=== PATIENT | female | born 1980 | race Caucasian/White ===

== ENCOUNTER 2019-07-09 11:01 | Emergency (ER) | payer OTHER, SELFPAY ==
[2019-07-09 11:20] VITALS: BP 141/84; PULSE 100; RESP 19; TEMP 37.3; O2SAT 99; BMI 35.4
--- NOTE | 2019-07-09 12:14 | DI.US.S_ITS ---
PROCEDURE: US ABDOMEN LIMITED INDICATIONS: RUQ PAIN TECHNIQUE: Real-time focused scanning was performed of the abdomen, with image documentation. COMPARISON: [facility], CT, ABDOMEN/PELVIS WITH CONTRAST, 10/15/2014, 3:02. [facility], CT, KIDNEY/ URETER/BLADDER, 10/18/2007, 15:13. FINDINGS: The liver is measuring within the upper limits of normal for size at approximately 17 cm. No focal liver lesions are appreciated on the provided images. The gallbladder is somewhat contracted without significant gallbladder wall thickening. No pericholecystic fluid or cholelithiasis is identified. The common bile duct is normal in size at 3 mm in diameter. Imaged portions of the pancreas are unremarkable. The right kidney is unremarkable. There is no hydronephrosis or shadowing nephrolithiasis. The right kidney measures up to 11.9 cm in length. No free fluid is seen within the upper abdomen. The abdominal aorta and inferior vena cava were not adequately seen. IMPRESSION: 1. No cholelithiasis or evidence of acute cholecystitis. 2. No hydronephrosis of the right kidney. Dictated by: Porter Carrington M.D. on 07/09/2019 at 12:05 Approved by: Porter Carrington M.D. on 07/09/2019 at 12:06
--- NOTE | 2019-07-09 12:23 | ED.ABDPAIN ---
HPI - Abdominal Pain <CLINTON Funk - Last Filed: 07/09/19 14:57> General Chief Complaint: Abdominal Pain Stated Complaint: abdominal pain Time Seen by Provider: 07/09/19 12:04 Source: patient Mode of arrival: Family Vehicle Limitations: no limitations History of Present Illness HPI narrative: The patient is a 38 year female nonsmoker with history of 5 ectopic pregnancies who presents with a chief complaint of right upper quadrant pain. She presents from [facility] primary care for chief complaint of right upper quadrant pain. She states she has had chronic pain on and off for the past several years in her right upper quadrant, this came 4 days ago and is since worse. She denies any fevers, complains of nausea no vomiting. She states it gets worse with eating in a improves with rest. She states she is breast-feeding at this point time and is adamantly against any medications for pain or nausea right now. She states that she has had right upper quadrant ultrasounds in the past, with no acute findings. She states she still has her gallbladder, does have a complex OBGYN history including 3 C sections, IVF, right salpingectomy for ectopic in 2016 with a total of 5 ectopic pregnancies. She states her last menstrual cycle was 2 months ago, states she is currently at this point time. Related Data Home Medications Medication Instructions Recorded Confirmed calcium carbonate 600 mg calcium 600 mg PO DAILY 06/22/19 07/09/19 (1,500 mg) tablet cholecalciferol (vitamin D3) 50 2,000 unit PO DAILY 06/22/19 07/09/19 mcg (2,000 unit) capsule levothyroxine 50 mcg capsule 50 mcg PO DAILY 06/22/19 07/09/19 omega 7-dzd-tvt-fish oil 60 mg-90 1 cap PO DAILY 06/22/19 07/09/19 mg-500 mg capsule prenat.vits,murali,zkr-zugu-tjzoz 1 tab PO DAILY 06/22/19 07/09/19 Probiotics 1 cap PO DAILY 07/09/19 07/09/19 Allergies Allergy/AdvReac Type Severity Reaction Status Date / Time levofloxacin [From LEVAQUIN] Allergy Unknown Verified 07/09/19 11:26 promethazine [From PHENERGAN] Allergy Unknown Verified 07/09/19 11:26 Review of Systems <CLINTON Funk - Last Filed: 07/09/19 14:57> Review of Systems Narrative: GENERAL: Denies chills, fatigue, malaise, fever, sweats. HEENT: Denies sinus pain, ear pain, sore throat, difficulty swallowing, dizziness. RESPIRATORY: Denies dyspnea, cough, wheezing, hemoptysis, sputum. CARDIOVASCULAR: Denies chest pain, palpitations, orthopnea, edema, GASTROINTESTINAL: See HPI : Denies dysuria, frequency, incontinence, hematuria, urinary retention. MUSCULOSKELETAL: denies weakness, joint pain, or bony pain SKIN: Denies rash, skin lesions, or other NEUROLOGIC: Denies weakness, headache, numbness, change in speech, confusion, seizures, incoordination. PSYCHIATRIC: No concerning psychosocial issues. 12 point review of systems is negative except for those stated above Patient History <CLINTON Funk - Last Filed: 07/09/19 14:57> Medical History (Updated 07/09/19 @ 14:28 by PRAVEEN Leija) Anxiety (Chronic ~2007) Chicken pox (Resolved) Ectopic (Acute) Endometriosis (Chronic ~2013) Hypothyroidism (Chronic ~2015) In vitro fertilization (Acute) resulting from in vitro fertilization (Acute) Surgical History Anesthesia (Resolved) H/O unilateral salpingectomy (Acute ~2016) History of third molar tooth extraction (~2015) Status post delivery (~2000) Status post delivery (~2004) Status post delivery (Resolved ~2017) Status post tubal ligation (~2005) Social History Smoking Status: Never smoker second hand exposure: No alcohol intake: never substance use type: does not use Smoking Status: Never smoker alcohol intake frequency: 0-2 drinks per day Substance Use Type: does not use Exam <CLINTON Funk - Last Filed: 07/09/19 14:57> Narrative Exam Narrative: GENERAL: obese female sitting on stretcher in no acute distress HEAD: Atraumatic. Normocephalic. No temporal or scalp tenderness. EYES: Pupils equal round and reactive. Extraocular motions intact. No scleral icterus. No injection or drainage. ENT: Nose without bleeding, purulent drainage or septal hematoma. Throat without erythema, tonsillar hypertrophy or exudate. Uvula midline. Airway patent. NECK: Trachea midline. No JVD or lymphadenopathy. Supple, nontender, no meningeal signs. CARDIOVASCULAR: Regular rate and rhythm without murmurs, gallops, or rubs. RESPIRATORY: Clear to auscultation. Breath sounds equal bilaterally. No wheezes, rales, or rhonchi. No cough. No increased respiratory effort. No accessory muscle use. GASTROINTESTINAL: Abdomen soft, pain to right upper quadrant palpation with positive Arnett sign, active bowel sounds all 4 quadrants, nondistended. No hepato-splenomegaly, or palpable masses. EXTREMITIES: No clubbing, cyanosis, or edema. No joint tenderness, effusion, or edema noted. BACK: Nontender without deformity or crepitance. No flank tenderness. NEURO: AOx3. SKIN: No rash or erythema. Initial Vital Signs Initial Vital Signs: Vital Signs Temperature 99.1 F 07/09/19 11:20 Pulse Rate 100 H 07/09/19 11:20 Respiratory Rate 19 07/09/19 11:20 Blood Pressure 141/84 H 07/09/19 11:20 Pulse Oximetry 99 07/09/19 11:20 <Natividad Burnett MD - Last Filed: 07/09/19 18:55> Initial Vital Signs Initial Vital Signs: Vital Signs Temperature 99.1 F 07/09/19 11:20 Pulse Rate 100 H 07/09/19 11:20 Respiratory Rate 19 07/09/19 11:20 Blood Pressure 141/84 H 07/09/19 11:20 Pulse Oximetry 99 07/09/19 11:20 Course <CLINTON Funk - Last Filed: 07/09/19 14:57> Orders Ordered: ED Orders 07/09/19 12:14 US abdomen limited Stat 07/09/19 12:25 Amylase Stat Complete Blood Count AUTO DIFF Stat Comprehensive Metabolic Panel Stat Lipase Stat 07/09/19 12:47 Test Urine Stat Urinalysis and Microscopic Stat Vital Signs Vital signs: Vital Signs - 8 hr 07/09/19 11:20 07/09/19 13:39 Temperature 99.1 F Pulse Rate 100 H 87 Respiratory Rate 19 14 Blood Pressure 141/84 H Blood Pressure [Right Arm] 128/82 Pulse Oximetry 99 100 <Natividad Burnett MD - Last Filed: 07/09/19 18:55> Orders Ordered: ED Orders 07/09/19 12:14 US abdomen limited Stat 07/09/19 12:25 Amylase Stat Complete Blood Count AUTO DIFF Stat Comprehensive Metabolic Panel Stat Lipase Stat 07/09/19 12:47 Test Urine Stat Urinalysis and Microscopic Stat Vital Signs Vital signs: Vital Signs - 8 hr 07/09/19 11:20 07/09/19 13:39 Temperature 99.1 F Pulse Rate 100 H 87 Respiratory Rate 19 14 Blood Pressure 141/84 H Blood Pressure [Right Arm] 128/82 Pulse Oximetry 99 100 MDM - Abdominal Pain <DANA Funk - Last Filed: 07/09/19 14:57> Lab Data Result diagrams: 07/09/19 12:25 07/09/19 12:25 Labs: Lab Results 07/09/19 07/09/19 07/09/19 Range/Units 12:25 12:25 12:47 WBC 11.4 H (4.5-11.0) X10^3/uL RBC 4.97 (4.0-5.2) X10^6/uL Hgb 14.7 (12.0-16.0) g/dL Hct 43.0 (36-46) % MCV 86.5 (80-100) fL MCH 29.5 (26-34) PG MCHC 34.1 (30-36) % RDW 13.5 (11.6-14.8) % Plt Count 339 (150-400) X10^3/uL Neut % (Auto) 68.0 (50-75) % Lymph % (Auto) 20.8 L (25-40) % [place] % (Auto) 8.5 (3-14) % Eos % (Auto) 2.0 (2-4) % Baso % (Auto) 0.7 (0-2) % Neut # (Auto) 7800 H (9719-5916) /uL Lymph # (Auto) 2400 (4503-5915) /uL [place] # (Auto) 1000 H (0-900) /uL Eos # (Auto) 200 (0-450) /uL Baso # (Auto) 100 (0-100) /uL Sodium 140 (137-145) mmol/L Potassium 3.7 (3.4-5.1) mmol/L Chloride 102 (98-107) mmol/L Carbon Dioxide 29 (22-32) mmol/L BUN 10 (7-17) mg/dL Creatinine 0.50 L (0.52-1.04) mg/dL Estimated GFR > 60.0 (>60) mL/min BUN/Creatinine Ratio 20.0 (6-22) Glucose 121 H (70-100) mg/dL Calcium 9.4 (8.4-10.2) mg/dL Total Bilirubin 0.4 (0.2-1.3) mg/dL AST 26 (14-36) IU/L ALT 18 (<35) IU/L Alkaline Phosphatase 95 (38-126) U/L Total Protein 8.7 H (6.3-8.2) g/dL Albumin 4.8 (3.5-5.0) g/dL Globulin 3.9 (1.7-4.1) g/dL Albumin/Globulin Ratio 1.2 (1.0-2.8) Amylase 57 (30-110) U/L Lipase 177 (23-300) U/L Urine Color Yellow Urine Appearance Clear Urine pH 6.0 (4.5-8.0) Ur Specific [place] <=1.005 (1.000-1.035) Urine Protein Negative (Negative) Urine Glucose (UA) Negative (Negative) g/dL Urine Ketones Negative (NEGATIVE) Urine Occult Blood 1+ H (Negative) Urine Nitrate Negative (Negative) Urine Bilirubin Negative (NEGATIVE) Urine Urobilinogen 0.2 (0.2) E.U./dL Ur Leukocyte Esterase Negative (NEGATIVE) Urine RBC 1-5/hpf (0-5/HPF) Urine WBC None seen (0-5/HPF) Urine Bacteria None seen (None) Ur Culture Indicated? Cult not indicated Urine Test (Negative) 07/09/19 Range/Units 12:47 WBC (4.5-11.0) X10^3/uL RBC (4.0-5.2) X10^6/uL Hgb (12.0-16.0) g/dL Hct (36-46) % MCV (80-100) fL MCH (26-34) PG MCHC (30-36) % RDW (11.6-14.8) % Plt Count (150-400) X10^3/uL Neut % (Auto) (50-75) % Lymph % (Auto) (25-40) % [place] % (Auto) (3-14) % Eos % (Auto) (2-4) % Baso % (Auto) (0-2) % Neut # (Auto) (6753-9128) /uL Lymph # (Auto) (3925-6116) /uL [place] # (Auto) (0-900) /uL Eos # (Auto) (0-450) /uL Baso # (Auto) (0-100) /uL Sodium (137-145) mmol/L Potassium (3.4-5.1) mmol/L Chloride (98-107) mmol/L Carbon Dioxide (22-32) mmol/L BUN (7-17) mg/dL Creatinine (0.52-1.04) mg/dL Estimated GFR (>60) mL/min BUN/Creatinine Ratio (6-22) Glucose (70-100) mg/dL Calcium (8.4-10.2) mg/dL Total Bilirubin (0.2-1.3) mg/dL AST (14-36) IU/L ALT (<35) IU/L Alkaline Phosphatase (38-126) U/L Total Protein (6.3-8.2) g/dL Albumin (3.5-5.0) g/dL Globulin (1.7-4.1) g/dL Albumin/Globulin Ratio (1.0-2.8) Amylase (30-110) U/L Lipase (23-300) U/L Urine Color Urine Appearance Urine pH (4.5-8.0) Ur Specific [place] (1.000-1.035) Urine Protein (Negative) Urine Glucose (UA) (Negative) g/dL Urine Ketones (NEGATIVE) Urine Occult Blood (Negative) Urine Nitrate (Negative) Urine Bilirubin (NEGATIVE) Urine Urobilinogen (0.2) E.U./dL Ur Leukocyte Esterase (NEGATIVE) Urine RBC (0-5/HPF) Urine WBC (0-5/HPF) Urine Bacteria (None) Ur Culture Indicated? Urine Test Negative (Negative) Imaging Data US - abdomen: Radiologist's Impression: [address] [address] Ultrasound Report Signed Patient: Cathie Alarcon [facility]#: [id number] : 1980Acct:[id number] Age/Sex: 38 / FDate of Service: 07/09/19 Loc: ED Accession Number: [id number] Procedure: US abdomen limited Ordering Provider: Stacy Olmos PROCEDURE: US ABDOMEN LIMITED INDICATIONS: RUQ PAIN TECHNIQUE: Real-time focused scanning was performed of the abdomen, with image documentation. COMPARISON: [facility], CT, ABDOMEN/PELVIS WITH CONTRAST, 10/15/2014, 3:02. [facility], CT, KIDNEY/ URETER/BLADDER, 10/18/2007, 15:13. FINDINGS: The liver is measuring within the upper limits of normal for size at approximately 17 cm. No focal liver lesions are appreciated on the provided images. The gallbladder is somewhat contracted without significant gallbladder wall thickening. No pericholecystic fluid or cholelithiasis is identified. The common bile duct is normal in size at 3 mm in diameter. Imaged portions of the pancreas are unremarkable. The right kidney is unremarkable. There is no hydronephrosis or shadowing nephrolithiasis. The right kidney measures up to 11.9 cm in length. No free fluid is seen within the upper abdomen. The abdominal aorta and inferior vena cava were not adequately seen. IMPRESSION: 1. No cholelithiasis or evidence of acute cholecystitis. 2. No hydronephrosis of the right kidney. Dictated by: Porter Carrington M.D. on 07/09/2019 at 12:05 Approved by: Porter Carrington M.D. on 07/09/2019 at 12:06 [facility] Narrative Medical decision making narrative: The patient is a 38-year-old female who presents with a chief complaint of acute on chronic right upper quadrant pain. She has had pain like this on and off for the past several years, worse over the past 4 days. Lab work is grossly unremarkable, with no significant leukocytosis normal bilirubin and LFTs. Ultrasound illustrate no cholelithiasis, no evidence of cholecystitis. I discussed at length obtaining a CT scan given the significance of pain on exam, but the patient declines and states that she would prefer to follow up with primary care provider and her structural rigger. I discussed at length that she come back to the emergency department for any acute concerns such as abdominal pain with fever etcetera. Patient has no questions or concerns upon discharge states understanding return precautions as well as follow-up care. I did recommend a light diet, continuing her Pepcid, etcetera. Again patient repeatedly declined a CT scan in the emergency department, even after speaking with her . <Natividad Burnett MD - Last Filed: 07/09/19 18:55> Lab Data Labs: Lab Results 07/09/19 07/09/19 07/09/19 Range/Units 12:25 12:25 12:47 WBC 11.4 H (4.5-11.0) X10^3/uL RBC 4.97 (4.0-5.2) X10^6/uL Hgb 14.7 (12.0-16.0) g/dL Hct 43.0 (36-46) % MCV 86.5 (80-100) fL MCH 29.5 (26-34) PG MCHC 34.1 (30-36) % RDW 13.5 (11.6-14.8) % Plt Count 339 (150-400) X10^3/uL Neut % (Auto) 68.0 (50-75) % Lymph % (Auto) 20.8 L (25-40) % [place] % (Auto) 8.5 (3-14) % Eos % (Auto) 2.0 (2-4) % Baso % (Auto) 0.7 (0-2) % Neut # (Auto) 7800 H (9503-4697) /uL Lymph # (Auto) 2400 (0635-0939) /uL [place] # (Auto) 1000 H (0-900) /uL Eos # (Auto) 200 (0-450) /uL Baso # (Auto) 100 (0-100) /uL Sodium 140 (137-145) mmol/L Potassium 3.7 (3.4-5.1) mmol/L Chloride 102 (98-107) mmol/L Carbon Dioxide 29 (22-32) mmol/L BUN 10 (7-17) mg/dL Creatinine 0.50 L (0.52-1.04) mg/dL Estimated GFR > 60.0 (>60) mL/min BUN/Creatinine Ratio 20.0 (6-22) Glucose 121 H (70-100) mg/dL Calcium 9.4 (8.4-10.2) mg/dL Total Bilirubin 0.4 (0.2-1.3) mg/dL AST 26 (14-36) IU/L ALT 18 (<35) IU/L Alkaline Phosphatase 95 (38-126) U/L Total Protein 8.7 H (6.3-8.2) g/dL Albumin 4.8 (3.5-5.0) g/dL Globulin 3.9 (1.7-4.1) g/dL Albumin/Globulin Ratio 1.2 (1.0-2.8) Amylase 57 (30-110) U/L Lipase 177 (23-300) U/L Urine Color Yellow Urine Appearance Clear Urine pH 6.0 (4.5-8.0) Ur Specific [place] <=1.005 (1.000-1.035) Urine Protein Negative (Negative) Urine Glucose (UA) Negative (Negative) g/dL Urine Ketones Negative (NEGATIVE) Urine Occult Blood 1+ H (Negative) Urine Nitrate Negative (Negative) Urine Bilirubin Negative (NEGATIVE) Urine Urobilinogen 0.2 (0.2) E.U./dL Ur Leukocyte Esterase Negative (NEGATIVE) Urine RBC 1-5/hpf (0-5/HPF) Urine WBC None seen (0-5/HPF) Urine Bacteria None seen (None) Ur Culture Indicated? Cult not indicated Urine Test (Negative) 07/09/19 Range/Units 12:47 WBC (4.5-11.0) X10^3/uL RBC (4.0-5.2) X10^6/uL Hgb (12.0-16.0) g/dL Hct (36-46) % MCV (80-100) fL MCH (26-34) PG MCHC (30-36) % RDW (11.6-14.8) % Plt Count (150-400) X10^3/uL Neut % (Auto) (50-75) % Lymph % (Auto) (25-40) % [place] % (Auto) (3-14) % Eos % (Auto) (2-4) % Baso % (Auto) (0-2) % Neut # (Auto) (5949-5182) /uL Lymph # (Auto) (7391-0799) /uL [place] # (Auto) (0-900) /uL Eos # (Auto) (0-450) /uL Baso # (Auto) (0-100) /uL Sodium (137-145) mmol/L Potassium (3.4-5.1) mmol/L Chloride (98-107) mmol/L Carbon Dioxide (22-32) mmol/L BUN (7-17) mg/dL Creatinine (0.52-1.04) mg/dL Estimated GFR (>60) mL/min BUN/Creatinine Ratio (6-22) Glucose (70-100) mg/dL Calcium (8.4-10.2) mg/dL Total Bilirubin (0.2-1.3) mg/dL AST (14-36) IU/L ALT (<35) IU/L Alkaline Phosphatase (38-126) U/L Total Protein (6.3-8.2) g/dL Albumin (3.5-5.0) g/dL Globulin (1.7-4.1) g/dL Albumin/Globulin Ratio (1.0-2.8) Amylase (30-110) U/L Lipase (23-300) U/L Urine Color Urine Appearance Urine pH (4.5-8.0) Ur Specific [place] (1.000-1.035) Urine Protein (Negative) Urine Glucose (UA) (Negative) g/dL Urine Ketones (NEGATIVE) Urine Occult Blood (Negative) Urine Nitrate (Negative) Urine Bilirubin (NEGATIVE) Urine Urobilinogen (0.2) E.U./dL Ur Leukocyte Esterase (NEGATIVE) Urine RBC (0-5/HPF) Urine WBC (0-5/HPF) Urine Bacteria (None) Ur Culture Indicated? Urine Test Negative (Negative) Discharge Plan Departure Patient Disposition: Home Clinical Impression: Abdominal pain Qualifiers: Abdominal location: right upper quadrant Qualified Code(s): R10.11 - Right upper quadrant pain Discharge Date/Time: 07/09/19 14:47 Instructions: DI for Abdominal Pain-Adult, GERD Diet Activity Restrictions/Additional Instructions: Thank you for trusting us with your care today. Please come back to emergency department for any acute concerns such as abdominal pain with fever, inability keep down fluids etcetera Please follow-up with primary care provider. As discussed, you have declined further imaging in the emergency department today. Please follow-up with primary care provider in the next few days. In the meantime, I suggest a simple diet, avoiding deep fried, spicy, fatty, citrus, acidic foods. Please come back to emergency department for any acute concerns. Prescriptions: No Action levothyroxine 50 mcg capsule 50 mcg PO DAILY RF: 0 omega 8-vvv-axa-fish oil [Fish Oil] 60-90-500 mg capsule 1 cap PO DAILY RF: 0 prenat.vits,murali,zkn-vwde-vewur Tablet 1 tab PO DAILY RF: 0 cholecalciferol (vitamin D3) 50 mcg (2,000 unit) capsule 2,000 unit PO DAILY RF: 0 calcium carbonate 600 mg calcium (1,500 mg) tablet 600 mg PO DAILY RF: 0 Probiotics 1 cap PO DAILY RF: 0 Referrals: Robinson Hernandez ARNP [Primary Care Provider] -
[2019-07-09 12:32] LABS: Add Manual Diff / Slide Review NO; Basophils Absolute Auto 100 /uL (0-100); Basophils Percent Auto 0.7 % (0-2); Eosinophils Absolute Auto 200 /uL (0-450); Hemoglobin 14.7 g/dL (12.0-16.0); Lymphocytes Absolute Auto 2400 /uL (1100-4500); Lymphocytes Percent Auto 20.8 % (25-40); Mean Corpuscular HGB Conc 34.1 % (30-36); Mean Corpuscular Hemoglobin 29.5 PG (26-34); Mean Corpuscular Volume 86.5 fL (80-100); Monocytes Absolute Auto 1000 /uL (0-900); Monocytes Percent Auto 8.5 % (3-14); Neutrophils Absolute Auto 7800 /uL (1500-7000); Platelet Count 339 X10^3/uL (150-400); Red Blood Cell Count 4.97 X10^6/uL (4.0-5.2); Red Cell Distribution Width 13.5 % (11.6-14.8); White Blood Cell Count 11.4 X10^3/uL (4.5-11.0)
[2019-07-09 12:43] LABS: Alanine Aminotransferase 18 IU/L (<35); Albumin 4.8 g/dL (3.5-5.0); Albumin Globulin Ratio 1.2 (1.0-2.8); Alkaline Phosphatase 95 U/L (38-126); Amylase 57 U/L (30-110); Aspartate Aminotransferase 26 IU/L (14-36); Bilirubin Total 0.4 mg/dL (0.2-1.3); Blood Urea Nitrogen 10 mg/dL (7-17); Calcium 9.4 mg/dL (8.4-10.2); Carbon Dioxide 29 mmol/L (22-32); Chloride 102 mmol/L (98-107); Estimated Glomerular Filt Rate > 60.0 mL/min (>60); Globulin 3.9 g/dL (1.7-4.1); Glucose 121 mg/dL (70-100); HEMOLYSIS 21 (0-50); Lipase 177 U/L (23-300); Potassium 3.7 mmol/L (3.4-5.1); Sodium 140 mmol/L (137-145); Total Protein 8.7 g/dL (6.3-8.2)
[2019-07-09 12:52] LABS: Bacteria Urine None Seen; WBC Urine None Seen (0-5/HPF)
[2019-07-09 12:55] LABS: Appearance Urine UA CLEAR; Bilirubin Urine UA NEGATIVE (NEGATIVE); Color Urine UA YELLOW; Glucose Urine UA NEGATIVE (Negative); Ketones Urine UA NEGATIVE (NEGATIVE); Leukocyte Esterase Urine UA NEGATIVE (NEGATIVE); Nitrite Urine UA NEGATIVE (Negative); Occult Blood Urine UA 1+ (Negative); Protein Urine UA NEGATIVE (Negative); Specific Gravity Urine UA <=1.005 (1.000-1.035); Urobilinogen Urine UA 0.2 E.U./dL (0.2)
[2019-07-09 12:58] LABS: Pregnancy Test Urine Negative (Negative)
[2019-07-09 13:00] LABS: Culture Indicated Urine Cult Not Indicated; RBC Urine 1-5/HPF (0-5/HPF)
[2019-07-09 13:39] VITALS: BP 128/82; PULSE 87; RESP 14; O2SAT 100
== END 2019-07-09 14:47 | disposition home or self-care (01) ==
PROVIDERS: Emergency Provider Nurse Practitioner Family; Family Provider Family Medicine; PCP Nurse Practitioner Family
DX: R10.11 Right upper quadrant pain (principal)
CPT/HCPCS: 36415; 76705; 80053; 81001; 81025; 82150; 83690; 85025; 99284

== ENCOUNTER → 2019-07-21 09:25 | Outpatient (CLI) | payer OTHER, SELFPAY ==
--- NOTE | 2019-07-21 09:26 | DI.MRI.S_ITS ---
PROCEDURE: MR ABDOMEN WO/W CON INDICATIONS: acute on chronic RUQ pain TECHNIQUE: Coronal HASTE, axial 2D FLASH in- and [id number]; axial breath-hold T2 FSE. Dynamic axial VIBE during the administration of contrast; post-contrast coronal VIBE or 2D FLASH with fat saturation from the hepatic dome to the iliac crests. Optional diffusion weighted imaging and ADC may be performed. COMPARISON: [facility], , ABDOMEN LIMITED, 07/09/2019, 12:31. FINDINGS: Image quality: Excellent. Lung bases: No basal pleural effusions. Heart size is normal. Solid organs: No discrete solid hepatic mass or suspicious enhancement. No abnormal areas of washout. The gallbladder demonstrates no definite gallstones. There is a small focus of volume averaging artifact in the region of the gallbladder neck on axial T2 images. No gallbladder wall thickening or pericholecystic fluid. Biliary system is non dilated. Pancreas is normal in morphology. No pancreatic duct dilatation. No peripancreatic edema or fluid collections. Spleen is normal in size and enhancement. No adrenal nodules. Both kidneys demonstrate normal size and enhancement, without hydronephrosis. There is a left renal cyst measuring up to 2.5 cm. Nodes and vessels: No retroperitoneal or mesenteric adenopathy by size criteria. Aorta and inferior vena cava are normal in size. Bowel and peritoneum: Visualized bowel loops are normal in caliber. No free fluid. Bones and soft tissues: No ventral hernias. Bone marrow is normal in overall signal. IMPRESSION: 1. No acute intra-abdominal abnormality identified. Specifically, no evidence of cholelithiasis or cholecystitis. No biliary ductal dilatation or choledocholithiasis. Dictated by: Han Lipscomb M.D. on 07/21/2019 at 13:06 Approved by: Han Lipscomb M.D. on 07/21/2019 at 13:24
== END ==
PROVIDERS: Family Provider Family Medicine; PCP Nurse Practitioner Family; Referring Provider Nurse Practitioner Family; Visit Provider Nurse Practitioner Family
DX: R10.11 Right upper quadrant pain (principal)
CPT/HCPCS: 74183; A9579

== ENCOUNTER → 2019-07-28 12:06 | Outpatient (CLI) | payer OTHER, SELFPAY ==
--- NOTE | 2019-07-28 12:20 | DI.RAD.S_ITS ---
PROCEDURE: XR CHEST 2V INDICATIONS: Persistant cough and fever for 10 days TECHNIQUE: 2 views of the chest were acquired. COMPARISON: [facility], , CHEST 2 VIEW, 02/11/2015, 11:38. FINDINGS: Surgical changes and devices: None. Lungs and pleura: Lungs are clear. No pleural effusions or pneumothorax. Mediastinum: Mediastinal contours are normal. Heart size is normal. Bones and chest wall: No suspicious bony abnormalities. Soft tissues appear unremarkable. IMPRESSION: No acute cardiopulmonary pathology. Dictated by: Chauncey Loepz M.D. on 07/28/2019 at 12:33 Approved by: Chauncey Lopez M.D. on 07/28/2019 at 12:33
[2019-07-28 13:12] LABS: Add Manual Diff / Slide Review NO; Basophils Absolute Auto 100 /uL (0-100); Basophils Percent Auto 0.9 % (0-2); Eosinophils Absolute Auto 200 /uL (0-450); Eosinophils Percent Auto 2.7 % (2-4); Hematocrit 42.5 % (36-46); Hemoglobin 14.9 g/dL (12.0-16.0); Lymphocytes Absolute Auto 1200 /uL (1100-4500); Lymphocytes Percent Auto 17.2 % (25-40); Mean Corpuscular HGB Conc 35.1 % (30-36); Mean Corpuscular Hemoglobin 30.2 PG (26-34); Monocytes Absolute Auto 1000 /uL (0-900); Monocytes Percent Auto 13.9 % (3-14); Neutrophils Absolute Auto 4500 /uL (1500-7000); Neutrophils Percent Auto 65.3 % (50-75); Platelet Count 295 X10^3/uL (150-400); Red Blood Cell Count 4.94 X10^6/uL (4.0-5.2); Red Cell Distribution Width 13.4 % (11.6-14.8)
[2019-07-28 13:40] LABS: Cholesterol 110 mg/dL (140-199); HDL Cholesterol 37 mg/dL (40-60); LDL Cholesterol Calculated 45 mg/dL (<100); Triglycerides 141 mg/dL (35-150)
[2019-07-28 14:12] LABS: TSH w/ Reflex to FT4 0.86 uIU/mL (0.47-4.68)
== END ==
PROVIDERS: Family Provider Family Medicine; PCP Nurse Practitioner Family; Referring Provider Physician Assistant; Visit Provider Physician Assistant
DX: Z13.6 Encounter for screening for cardiovascular disorders (principal); Z31.83 Encounter for assisted reproductive fertility procedure cycle; R05 Cough; R50.9 Fever, unspecified; Z20.828 Contact with and (suspected) exposure to other viral communicable diseases
CPT/HCPCS: 36415; 71046; 80061; 84443; 85025

== ENCOUNTER → 2019-11-10 13:03 | Outpatient (CLI) | payer OTHER, SELFPAY ==
--- NOTE | 2019-11-10 | DI.NM.S_ITS ---
PROCEDURE: NM HIDA WITH CCK PHARMACEUTICAL: 5.4 mCi Tc-99m mebrofenin IV; 2.0 mcg CCK IV. INDICATIONS: Right upper quadrant pain TECHNIQUE: Following intravenous administration of Tc-99m mebrofenin, sequential anterior abdominal images were obtained. To evaluate the contractile response of the gallbladder in response to Cholecystokinin (CCK), sincalide (0.02 ?g/kg) was administered by slow intravenous infusion approximately 60 minutes after the administration of the radiopharmaceutical. Sequential imaging was continued for 30 minutes after the start of CCK infusion. Gallbladder ejection fraction was calculated. COMPARISON: None. FINDINGS: Biliary scan: There is normal tracer uptake and excretion by the liver. There is normal visualization of the intrahepatic ducts, common bile duct, and gallbladder. There is normal tracer transit into the duodenum. CCK stimulation: There is normal contractile response of the gallbladder to CCK infusion. The calculated gallbladder ejection fraction is 67%; normal values are above 35%. It has been shown that any patient abdominal pain after CCK administration is related to the rate of CCK injection, rather than to any underlying gallbladder disease (Clinical Nuclear Medicine 2012; 37: 63-70. Journal of Nuclear Medicine 2014; 55: 1-9). IMPRESSION: Normal examination without evidence of cholecystitis. Dictated by: Brenan Jung MD, PhD on 11/10/2019 at 15:21 Approved by: Brenna Jung MD, PhD on 11/10/2019 at 15:22
== END ==
PROVIDERS: Family Provider Family Medicine; PCP Nurse Practitioner Family; Referring Provider Physician Assistant; Visit Provider Physician Assistant
DX: R10.11 Right upper quadrant pain (principal)
CPT/HCPCS: 78227; A9537; J2805

== ENCOUNTER → 2020-02-17 01:03 | Outpatient (CLI) | payer SELFPAY | PROVIDERS: Family Provider Family Medicine; Referring Provider Internal Medicine; Visit Provider Internal Medicine | DX: Z23 Encounter for immunization (principal) | CPT/HCPCS: 90471; 90686 ==

== ENCOUNTER → 2020-05-19 09:43 | Outpatient (CLI) | payer OTHER, SELFPAY ==
[2020-05-19] MEDS: COVID-19 VACC(MODERNA-1)/PF 100 MCG/0.5 ML VIAL IM (09:48)
[2020-05-19] MEDS: diphenhydrAMINE 25 MG TABLET 50 MG PO (10:05)
== END ==
PROVIDERS: Family Provider Family Medicine; Visit Provider Internal Medicine
DX: Z23 Encounter for immunization (principal)
CPT/HCPCS: 0011A; 91301

== ENCOUNTER 2020-05-19 10:26 | Emergency (ER) | payer OTHER, SELFPAY ==
[2020-05-19] VITALS (8 sets, daily range): BP systolic 113–183; BP diastolic 62–96; PULSE 79–95; RESP 14–20; TEMP 36.9; O2SAT 95–100; BMI 36.6
--- NOTE | 2020-05-19 10:43 | ED.ALLEREA ---
HPI - Allergic Reaction <Stacy Olmos, FLATBED DRIVER-BC - Last Filed: 05/19/20 15:35> General Chief complaint: Allergic Reaction Stated complaint: reaction to vaccine Time Seen by Provider: 05/19/20 10:31 Source: patient Mode of arrival: Wheelchair Limitations: no limitations History of Present Illness HPI narrative: The patient is a 39-year-old nonsmoker with history of Caesarean sections who presents with a chief complaint of reaction to coronavirus vaccination. She had her 1st dose of Moderna vaccination at 9:45 a.m. this morning. At 10:05 a.m. this morning, she started feeling tingling in her tongue, that extending back towards her throat. She presents to the emergency department stating she feels like her throat is swollen, but denies any trouble breathing. She does have a history of possible allergic reaction to peanuts. She took 50 mg of Benadryl at 10:10 a.m.. She denies any rash or hives. She states she does not feel short of breath, just like her throat is closing up. Related Data Home Medications Medication Instructions Recorded Confirmed calcium carbonate 600 mg calcium 600 mg PO DAILY 06/22/19 07/28/19 (1,500 mg) tablet cholecalciferol (vitamin D3) 50 2,000 unit PO DAILY 06/22/19 07/28/19 mcg (2,000 unit) capsule levothyroxine 50 mcg capsule 50 mcg PO DAILY 06/22/19 07/28/19 omega 2-bbz-jpp-fish oil 60 mg-90 1 cap PO DAILY 06/22/19 07/28/19 mg-500 mg capsule prenat.vits,murali,uhl-bvaw-ujyrl 1 tab PO DAILY 06/22/19 07/28/19 Probiotics 1 cap PO DAILY 07/09/19 07/28/19 Previous Rx's Medication Instructions Recorded epinephrine 0.3 mg/0.3 mL 0.3 mg IM ONCE #2 each 07/23/19 injection, auto-injector albuterol sulfate 90 mcg/actuation 2 puff INHALATION Q4-6H PRN #18 07/28/19 aerosol inhaler gram prednisone 40 mg PO DAILY 4 Days #8 tab 05/19/20 Allergies Allergy/AdvReac Type Severity Reaction Status Date / Time peanut Allergy Severe throat Verified 07/28/19 11:26 swelling levofloxacin [From LEVAQUIN] Allergy Unknown red Verified 07/29/19 15:51 blotches and pain with infusion promethazine [From PHENERGAN] Allergy Unknown decreased Verified 07/29/19 15:51 BP (70s/30s) Review of Systems <CLINTON Funk - Last Filed: 05/19/20 15:35> Review of Systems Narrative: GENERAL: Denies chills, fatigue, malaise, fever, sweats. HEENT: See HPI RESPIRATORY: See HPI CARDIOVASCULAR: Denies chest pain, palpitations, orthopnea, edema, GASTROINTESTINAL: Denies nausea, vomiting, abdominal pain, diarrhea, constipation, melena. : Denies dysuria, frequency, incontinence, hematuria, urinary retention. MUSCULOSKELETAL: denies weakness, joint pain, or bony pain SKIN: Denies rash, skin lesions, or other NEUROLOGIC: Denies weakness, headache, numbness, change in speech, confusion, seizures, incoordination. PSYCHIATRIC: No concerning psychosocial issues. 12 point review of systems is negative except for those stated above Patient History <CLINTON Funk - Last Filed: 05/19/20 15:35> Medical History Anxiety (~2007) Chicken pox Ectopic Endometriosis (~2013) Hypothyroidism (~2015) In vitro fertilization resulting from in vitro fertilization Surgical History Anesthesia H/O unilateral salpingectomy (~2016) History of surgery (~2016) History of third molar tooth extraction (~2015) Status post delivery (~2000) Status post delivery (~2004) Status post delivery (~2017) Status post tubal ligation (~2005) Social History Smoking Status: Never smoker second hand exposure: No alcohol intake: never substance use type: does not use Smoking Status: Never smoker alcohol intake frequency: 0-2 drinks per day Substance Use Type: does not use Exam <CLINTON Funk - Last Filed: 05/19/20 15:35> Narrative Exam Narrative: GENERAL: This is a well-nourished, well-developed patient, appears slightly uncomfortable. HEAD: Atraumatic. Normocephalic. No temporal or scalp tenderness. EYES: Pupils equal round and reactive. Extraocular motions intact. No scleral icterus. No injection or drainage. ENT: Nose without bleeding, purulent drainage or septal hematoma. Throat without erythema, tonsillar hypertrophy or exudate. Uvula midline. Airway patent. No gabby swelling of oropharyngeal cavity NECK: Trachea midline. No JVD or lymphadenopathy. Supple, nontender, no meningeal signs. CARDIOVASCULAR: Regular rate and rhythm RESPIRATORY: Clear to auscultation. Breath sounds equal bilaterally. No wheezes, rales, or rhonchi. No cough. No increased respiratory effort. No accessory muscle use. Consistently clearing throat. GASTROINTESTINAL: Abdomen soft, non-tender, nondistended. No hepato-splenomegaly, or palpable masses. No guarding. EXTREMITIES: No clubbing, cyanosis, or edema. No joint tenderness, effusion, or edema noted. BACK: Nontender without deformity or crepitance. No flank tenderness. NEURO: AOx3. SKIN: No rash or erythema on visible skin. No obvious uticaria Initial Vital Signs Initial Vital Signs: Vital Signs Pulse Rate 93 H 05/19/20 10:33 Pulse Oximetry 97 05/19/20 10:33 <Natividad Burnett MD - Last Filed: 05/20/20 07:32> Initial Vital Signs Initial Vital Signs: Vital Signs Pulse Rate 93 H 05/19/20 10:33 Pulse Oximetry 97 05/19/20 10:33 Scores <CLINTON Funk - Last Filed: 05/19/20 15:35> GCS Dorris coma scale eye opening: Spontaneous Isaías coma scale verbal response: Orientated Isaías coma scale motor response: Obey commands Isaías coma scale total score: 15 Course <CLINTON Funk - Last Filed: 05/19/20 15:35> Orders Ordered: Discontinued Medications Sodium Chloride (Normal Saline 0.9%) 1,000 mls @ 1,000 mls/hr IV BOLUS ONE Stop: 05/19/20 11:37 Last Infusion: 05/19/20 12:47 Dose: 0 mls/hr Documented by: Admin: 05/19/20 11:01 Dose: 1,000 mls/hr Documented by: REINALDO Methylprednisolone (Methylprednisolone 125 Mg/2 Ml Vial) 125 mg IV NOW ONE Stop: 05/19/20 10:39 Last Admin: 05/19/20 11:02 Dose: 125 mg Documented by: REINALDO Vital Signs Vital signs: Vital Signs - 8 hr 05/19/20 10:33 05/19/20 10:34 05/19/20 10:55 Temperature 98.4 F Pulse Rate 93 H 91 H 95 H Respiratory Rate 20 Blood Pressure 183/96 H 183/96 H Pulse Oximetry 97 98 97 05/19/20 11:00 05/19/20 11:19 05/19/20 11:30 Temperature Pulse Rate 82 86 82 Respiratory Rate 18 14 Blood Pressure 135/73 Pulse Oximetry 96 98 97 05/19/20 12:00 05/19/20 12:55 Temperature Pulse Rate 79 80 Respiratory Rate 19 16 Blood Pressure 113/62 Pulse Oximetry 100 95 <Natividad Burnett MD - Last Filed: 05/20/20 07:32> Orders Ordered: Discontinued Medications Sodium Chloride (Normal Saline 0.9%) 1,000 mls @ 1,000 mls/hr IV BOLUS ONE Stop: 05/19/20 11:37 Last Infusion: 05/19/20 12:47 Dose: 0 mls/hr Documented by: Admin: 05/19/20 11:01 Dose: 1,000 mls/hr Documented by: REINALDO Methylprednisolone (Methylprednisolone 125 Mg/2 Ml Vial) 125 mg IV NOW ONE Stop: 05/19/20 10:39 Last Admin: 05/19/20 11:02 Dose: 125 mg Documented by: REINALDO Vital Signs Vital signs: Vital Signs - 8 hr 05/19/20 10:33 05/19/20 10:34 05/19/20 10:55 Temperature 98.4 F Pulse Rate 93 H 91 H 95 H Respiratory Rate 20 Blood Pressure 183/96 H 183/96 H Pulse Oximetry 97 98 97 05/19/20 11:00 05/19/20 11:19 05/19/20 11:30 Temperature Pulse Rate 82 86 82 Respiratory Rate 18 14 Blood Pressure 135/73 Pulse Oximetry 96 98 97 05/19/20 12:00 05/19/20 12:55 Temperature Pulse Rate 79 80 Respiratory Rate 19 16 Blood Pressure 113/62 Pulse Oximetry 100 95 MDM - Allergic Reaction <Stacy Olmos, FLATBED DRIVER-BC - Last Filed: 05/19/20 15:35> [facility] Narrative Medical decision making narrative: The patient is a 39-year-old female with history of peanut allergy who presents to the emergency department today for concern of an allergic reaction after her covid19 vaccination. She presents with sensation of swelling of her throat, the vital signs are stable, no signs of acute of anaphylaxis. She received Benadryl prior to arrival, was given Solu-Medrol and states she felt much improved. She was observed in the emergency department for over 2 hours to ensure safety. Her vital signs remained stable. We discussed a burst of steroids, instructed follow up with primary care provider over the next few days. Discussed at length coming back to the ER for acute concerns such as respiratory distress etcetera. Patient states she is comfortable using an EpiPen and has 1 at home. No questions or concerns upon discharge states understanding of return precautions as well as follow-up care. Discussed the importance of follow-up with primary care provider in the next few days. Discussed that she may not be eligible for the 2nd vaccination. Discharge Plan Departure Patient Disposition: Home Clinical Impression: Allergic reaction Qualifiers: Encounter type: initial encounter Qualified Code(s): T78.40XA - Allergy, unspecified, initial encounter Instructions: DI for General Allergic Reactions, DI for Adverse Drug Reaction -- Allergic Activity Restrictions/Additional Instructions: Thank you for trusting us with your care today. As discussed, we have given you steroids to help decrease inflammation related to your reaction. I sent a prescription of a burst of steroids to [facility] in [place]. Please start this tomorrow. As discussed, you can also use Benadryl as needed every 6 or 8 hours. Please come back to the emergency department for any acute concerns such as respiratory distress, swelling of her lips face or tongue etcetera Please follow-up with primary care provider in the next few days. Prescriptions: New prednisone 20 mg tablet 40 mg PO DAILY 4 Days Qty: 8 RF: 0 No Action albuterol sulfate 90 mcg/actuation HFA aerosol inhaler 2 puff INHALATION Q4-6H PRN (Reason: shortness of breath or wheezing) Qty: 18 RF: 0 epinephrine [EpiPen 2-Shaquille] 0.3 mg/0.3 mL auto-injector 0.3 mg IM ONCE Qty: 2 RF: 2 levothyroxine 50 mcg capsule 50 mcg PO DAILY RF: 0 omega 6-xrk-fkx-fish oil [Fish Oil] 60-90-500 mg capsule 1 cap PO DAILY RF: 0 prenat.vits,murali,vme-ciby-imyus Tablet 1 tab PO DAILY RF: 0 cholecalciferol (vitamin D3) 50 mcg (2,000 unit) capsule 2,000 unit PO DAILY RF: 0 calcium carbonate 600 mg calcium (1,500 mg) tablet 600 mg PO DAILY RF: 0 Probiotics 1 cap PO DAILY RF: 0 Referrals: Robinson Hernandez ARNP [[employer] Operator] - Miscellaneous,MD Kayla [Primary Care Provider] - <Natividad Burnett MD - Last Filed: 05/20/20 07:32> Cosign ED Attending Cosignature Attestation: I was immediately available in the department for consultation throughout this patient's visit. I agree with documentation as above. Natividad Burnett MD
[2020-05-19] MEDS: SODIUM CHLORIDE 0.9% 1,000 ML 1000 ML IV (11:01)
[2020-05-19] MEDS: methylPREDNISolone 125 MG/2 ML VIAL IV (11:02)
== END 2020-05-19 13:07 | disposition home or self-care (01) ==
PROVIDERS: Emergency Provider Nurse Practitioner Family; Family Provider Family Medicine
DX: T78.40XA Allergy, unspecified, initial encounter (principal); T50.Z95A Adverse effect of other vaccines and biological substances, initial encounter; R22.1 Localized swelling, mass and lump, neck; R20.2 Paresthesia of skin; E03.9 Hypothyroidism, unspecified
CPT/HCPCS: 36415; 96361; 96374; 99281; 99284; J2930

== ENCOUNTER → 2021-02-08 11:25 | Outpatient (CLI) | payer OTHER, SELFPAY | PROVIDERS: Family Provider Family Medicine; Referring Provider Internal Medicine; Visit Provider Internal Medicine | DX: Z23 Encounter for immunization (principal) | CPT/HCPCS: 90471; 90686 ==

== ENCOUNTER → 2021-02-21 08:20 | Outpatient (CLI) | payer OTHER, SELFPAY ==
[2021-02-21 10:40] LABS: COVID19 -Nasal RAPID Negative (Negative)
== END ==
PROVIDERS: Family Provider Family Medicine; Visit Provider Nurse Practitioner
DX: Z01.812 Encounter for preprocedural laboratory examination (principal); Z20.822 Contact with and (suspected) exposure to COVID-19
CPT/HCPCS: 87635

== ENCOUNTER → 2022-01-29 07:20 | Outpatient (CLI) | payer OTHER, SELFPAY | PROVIDERS: Family Provider Family Medicine; PCP Nurse Practitioner Family; Referring Provider Internal Medicine; Visit Provider Internal Medicine | DX: Z23 Encounter for immunization (principal) | CPT/HCPCS: 90471; 90686 ==